=== PATIENT | male | born 1985 | race Caucasian/White ===

== ENCOUNTER 2018-06-10 18:03 | Emergency (ER) | payer SELFPAY ==
[2018-06-10] MEDS ORDERED: PROPARACAINE HCL OPTH 15ML BTL OPTH ONE (18:13)
--- NOTE | 2018-06-10 18:33 | Emergency Department Record ---
History of Present Illness - General Chief complaint: Eye Problem Stated complaint: LEFT EYE PAIN Time Seen by Provider: 06/10/18 18:27 Source: Patient Mode of Arrival: Ambulatory Limitations: No limitations - History of Present Illness Initial comments: 33 yo male presents with left eye pain and irritation since this morning. 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 He worked the remainder of the day. The eye has continued to have a FB sensation. No contacts. Tetanus is up to date. The sensation is in the mid left eye. MD chief complaint: Eye pain, Foreign body Onset/Timin -: Hour(s) Location: Left eye Place: Work If Injury: Occurred while hammering/grinding Eye Symptoms: Burning, Blurry vision, Itching, Pain, Redness Severity: Moderate Severity scale (1-10): 8 If Pain, Quality: Aching Consistency: Constant Associated Symptoms: None Treatments Prior to Arrival: None - Related Data Visual acuity (L) = 20/: 0 Visual acuity (R) = 20/: 30 With correction: (none) Hx Tetanus Toxoid Vaccination: Yes Year of Tetanus Vaccination: 2016 Patient Tetanus UTD (within 5 yrs): Yes (2016) Home Medications Medication Instructions Recorded Confirmed Last Taken No Home Med [NO HOME MEDS] 06/10/18 06/10/18 Unknown Allergies Allergy/AdvReac Type Severity Reaction Status Date / Time Penicillins Allergy Unknown PT UNSURE Verified 06/10/18 18:12 OF REACTION Travel Screening - Travel/Exposure Within Last 30 Days Have you traveled within the last 30 days?: No - Travel/Exposure Within Last Year Have you traveled outside the [place] in the last year?: No - Additonal Travel Details Have you been exposed to anyone with a communicable illness?: No - Travel Symptoms Symptom Screening: None Review of Systems Constitutional: Denies: Chills, Fever, Malaise, Weakness Eyes: Reports: Eye pain, Vision change. Denies: Eye discharge, Photophobia ENT: Denies: Congestion, Ear pain Respiratory: Denies: Cough Cardiovascular: Denies: Chest pain Endocrine: Denies: Fatigue Gastrointestinal: Denies: Diarrhea, Nausea, Vomiting Genitourinary: Denies: Dysuria, Frequency Musculoskeletal: Denies: Myalgia Skin: Denies: Bruising, Change in color, Rash Neurological: Denies: Headache Psychiatric: Denies: Anxiety Hematological/Lymphatic: Denies: Easy bleeding, Easy bruising Past Medical History - SOCIAL HISTORY Smoking Status: Never smoker Alcohol Use: None Drug Use: Occasional Drug Use Detail:: Marijuana - RESPIRATORY Hx Respiratory Disorders: No - CARDIOVASCULAR Hx Cardio Disorders: No - NEURO Hx Neuro Disorders: No - GI Hx GI Disorders: No - Hx Genitourinary Disorders: Yes Hx Kidney Stones: Yes (once several yrs ago) - ENDOCRINE Hx Endocrine Disorders: No - MUSCULOSKELETAL Hx Musculoskeletal Disorders: Yes Hx Arthritis: Yes - PSYCH Hx Psych Problems: Yes Hx Depression: Yes (takes cymbalta) - HEMATOLOGY/ONCOLOGY Hx Hematology/Oncology Disorders: No Family Medical History Any Significant Family History?: Yes Physical Exam - General General Appearance: Alert, Oriented x3, Cooperative, No acute distress Limitations: No limitations - Head Head exam: Atraumatic, Normal inspection - Eye Eye exam: PERRL, Conjunctival injection, EOMI. negative: Normal appearance, Nystagmus, Periorbital swelling, Periorbital tenderness, Scleral icterus Pupils: negative: Irregular, Miosis, Mydriatic, Unequal With correction: (none) Image of Eyes: 1 - Pupil 2 - small metallic FB - ENT ENT exam: Normal exam Ear exam: Normal external inspection Nasal Exam: Normal inspection Mouth exam: Normal external inspection - Neck Neck exam: Normal inspection - Neurological Neurological exam: Alert, Oriented X3 - Psychiatric Psychiatric exam: Normal affect, Normal mood - Skin Skin exam: Dry, Intact, Normal color, Warm Course Vital Signs 06/10/18 18:05 Temperature 98.2 F Pulse Rate [ 66 Pulse Ox Probe] Respiratory 16 Rate Blood Pressure 131/74 [Left Arm] Pulse Ox 98 - Reevaluation(s) Reevaluation #1: Alcaine drops applied [place] lamp and slit lamp used after stain applied Since area noted just above left pupil The FB was easily removed with plastic tipped currette No streaming Residual rust ring noted He will be referred to ophthalmology for follow up of the rust ring 06/10/18 18:30 06/10/18 18:35 Visual acuity is 30 - 30 both eyes Disposition Disposition: Discharge Clinical Impression: Corneal foreign body Qualifiers: Encounter type: initial encounter Laterality: left Qualified Code(s): T15.02XA - Foreign body in cornea, left eye, initial encounter Disposition: Home, Self-Care Condition: (1) Good Instructions: Eye Foreign Body (ED) Additional Instructions: Use the antibiotic every 4 hours Motrin for pain Return if worse, fever, any concerns You have been referred to ophthalmology for follow up of the rust ring Referrals: [facility] [Provider Group] EDITA CASTELAN [MEDICAL DOCTOR] - Forms: Patient Portal Access Quality - Quality Measures Quality Measures: N/A - Blood Pressure Screening Does Patient Have Any of the Following: No Blood Pressure Classification: Pre-Hypertensive BP Reading Systolic Measurement: 131 Diastolic Measurement: 74 Screening for High Blood Pressure: < Pre-Hypertensive BP, F/U Documented > [ [id number]] Pre-Hypertensive Follow-up Interventions: Referral to alternative/primary care provider.
[2018-06-10] MEDS ORDERED: POLYMYXIN B SULF/TRIMETHOPRIM 10ML BTL OPTH ONE (18:35)
[2018-06-10] MEDS ORDERED: HYDROCODONE/APAP 5/325MG TABLET PO ONE (18:35)
== END 2018-06-10 18:57 | disposition home or self-care (01) ==
LOC: ER 18:03
DX: T15.02XA Foreign body in cornea, left eye, initial encounter (principal); Y99.0 Civilian activity done for income or pay
CPT/HCPCS: 65222 ×2; 99283 ×2; J3490